=== PATIENT | male | born 1950 | race Caucasian/White ===

== ENCOUNTER 2017-07-13 18:00 | Emergency (ER) | payer BC ==
--- NOTE | 2017-07-13 18:29 | NUR ---
Attempted to triage pt, pt was not found in ER waiting room.
--- NOTE | 2017-07-13 18:39 | NUR ---
Pt not found in ER waiting room, second attempt.
== END 2017-07-13 18:40 | disposition home or self-care (01) ==
LOC: ER 18:04
DX: Z53.21 Procedure and treatment not carried out due to patient leaving prior to being seen by health care provider (principal)